=== PATIENT | male | born 1980 ===

== ENCOUNTER 2021-07-31 17:02 | Observation (INO) | payer SELFPAY ==
[2021-07-31] MEDS ORDERED: ACETAMINOPHEN 500 MG TAB PO STA (18:10)
[2021-07-31 18:29] LABS: Basophils % (Auto) 0.5 % (0.0-1.8); Eosinophils # (Auto) 0.9 K/mm3 (0.0-0.4); Eosinophils % (Auto) 13.8 % (0.0-4.3); Hematocrit 35.2 % (35.5-45.6); Hemoglobin 11.5 gm/dl (11.8-15.2); Lymphocytes # (Auto) 0.5 K/mm3 (1.2-5.4); Lymphocytes % (Auto) 7.2 % (13.4-35.0); Mean Corpuscular HGB Conc 33 % (32-34); Mean Corpuscular Volume 92 fl (84-94); Monocytes # (Auto) 0.5 K/mm3 (0.0-0.8); Monocytes % (Auto) 6.8 % (0.0-7.3); Platelet Count 138 K/mm3 (140-440); Red Blood Count 3.81 M/mm3 (3.65-5.03); Red Cell Distribution Width 13.3 % (13.2-15.2)
--- NOTE | 2021-07-31 18:39 | XRay Report ---
CHEST 2 VIEWS INDICATION / CLINICAL INFORMATION: fever. FINDINGS: SUPPORT DEVICES: None. HEART / MEDIASTINUM: Borderline enlarged LUNGS / PLEURA: No airspace pneumonia. Increased pulmonary venous prominence noted bilaterally Signer Name: Binu Ojeda MD Signed: 07/31/2021 6:35 PM Workstation Name: [id number]
[2021-07-31 18:53] LABS: Blood Urea Nitrogen 38 mg/dL (9-20); Calcium 8.2 mg/dL (8.4-10.2); Hemolysis Index 10
[2021-07-31 18:55] LABS: Alanine Aminotransferase < 5 units/L (7-56); BUN/Creatinine Ratio 4
[2021-07-31] MEDS ORDERED: cefTRIAXone/NS 2 GM/100 ML 2 GM/100 ML BAG IV ONE (19:04)
--- NOTE | 2021-07-31 19:04 | Emergency Department Report ---
ED General Adult HPI - General Chief complaint: Weakness Stated complaint: WEAKNESS/MALAISE PUI?: Yes Time Seen by Provider: 07/31/21 18:52 Source: patient, EMS ( EMS documentation not available at time of chart dictation ), RN notes reviewed Mode of arrival: Stretcher Limitations: Physical Limitation - History of Present Illness Initial comments: The patient was evaluated in the emergency department for symptoms described in the history of present illness. He/she was evaluated in the context of the global COVID-19 pandemic, which necessitated consideration that the patient might be at risk for infection with the virus that causes COVID-19. Institutional protocols and algorithms that pertain to the evaluation of patien ts at risk for COVID-19 are in a state of rapid change based on information released by regulatory bodies including the CDC and federal and state organizations. These policies and algorithms were followed during the patient's care in the emergency department. Please note that these policies, procedures and recommendations changed on a rapid basis. During the history and physical examination, I had on complete personal protective equipment. This is a 41-year-old gentleman. He is not known to myself previously. He has a history of end-stage renal disease on hemodialysis, with a right upper extremity fistula. He also reports a history of hypertension, and he is not vaccinated against COVID-19. The patient presents to the ER with a complaint of fever, body aches, chills, shortness of breath, malaise and fatigue, left-sided thorax pain, left-sided chest wall pain cough. Symptoms present for the past 24 to 48 hours. Mild headache. No neck pain. No anterior chest pain. No abdominal pain. No vomiting. He does not make urine. -: Gradual, days(s) Location: chest, back, left, right, upper extremity, lower extremity Severity scale (0 -10): 10 Quality: aching Consistency: constant Improves with: rest Worsens with: movement - Related Data Allergies Allergy/AdvReac Type Severity Reaction Status Date / Time No Known Allergies Allergy Unverified 07/31/21 17:08 ED Review of Systems ROS: Stated complaint: WEAKNESS/MALAISE Other details as noted in HPI Constitutional: fever, malaise, weakness ENT: congestion. denies: epistaxis Respiratory: cough, shortness of breath Cardiovascular: chest pain Gastrointestinal: denies: abdominal pain, vomiting Musculoskeletal: back pain, arthralgia, myalgia Neurological: headache, weakness ED Physical Exam - General Limitations: Physical Limitation General appearance: alert, anxious - Head Head exam: Present: atraumatic, normocephalic - Eye Eye exam: Present: normal appearance, EOMI. Absent: nystagmus - ENT ENT exam: Present: normal exam, normal orophraynx, mucous membranes moist, nor mal external ear exam - Neck Neck exam: Present: normal inspection, full ROM. Absent: tenderness, meningismus - Respiratory Respiratory exam: Present: chest wall tenderness, other (Pulmonary auscultation not performed secondary to lack of disposable stethoscope). Absent: stridor - Cardiovascular Cardiovascular Exam: Present: other (Cardiac auscultation not performed secondary to lack of disposable stethoscope) - GI/Abdominal GI/Abdominal exam: Present: soft. Absent: distended, tenderness, guarding, rebound, rigid, pulsatile mass - Rectal Rectal exam: Present: deferred - Extremities Exam Extremities exam: Present: normal inspection, full ROM, other (2+ pulses noted in the bilateral upper and lower extremities. There is no palpable cord. negative Homans sign. Muscular compartments are soft. The pelvis is stable.). Absent: calf tenderness - Back Exam Back exam: Present: normal inspection, paraspinal tenderness. Absent: tenderness, CVA tenderness (R), CVA tenderness (L), muscle spasm - Neurological Exam Neurological exam: Present: alert, abnormal gait (Patient walks with a broad- based gait. He requires assistance.), other (No facial droop. Tongue midline. Extraocular movements intact bilaterally. Facial sensation intact to light touch in V1, V2, V3 distribution bilaterally. 5 and a 5 strength in 4 extremities. Sensation intact to light touch in 4 extremities.). Absent: motor sensory deficit - Psychiatric Psychiatric exam: Present: anxious - Skin Skin exam: Present: warm, dry, intact, normal color. Absent: rash ED Course Vital Signs 07/31/21 07/31/21 07/31/21 17:06 20:57 20:59 Temperature 100.9 F H Pulse Rate 80 70 69 Respiratory 18 18 Rate Blood Pressure 167/108 Blood Pressure 201/112 [Right] O2 Sat by Pulse 100 100 Oximetry 07/31/21 07/31/21 21:01 21:15 Temperature Pulse Rate 72 70 Respiratory 17 19 Rate Blood Pressure 167/108 164/109 Blood Pressure [Right] O2 Sat by Pulse 100 100 Oximetry - Reevaluation(s) Reevaluation #1: 07/31/21 20:31 Differential diagnosis, including the not limited to: Bacteremia, viremia, pneumonia, COVID-19, end-stage renal disease on hemodialysis, hypertension Assessment and plan: 41-year-old gentleman, who is febrile, ill-appearing, cannot ambulate more than a few steps, who is not COVID-19 vaccinated, presenting with acute febrile illness. I am suspicious for COVID-19. He is not hypoxic at this time, but cannot ambulate. Laboratory studies reviewed and appreciated, elevated troponin is likely a type II troponin leak. Nephrology on board, please see my consultative note. Elevated blood pressure reviewed and appreciated, given febrile illness and concern for acute infectious pathology, reluctant to administer potent vasodilator such as hydralazine. We will start with Norvasc. We will load patient empirically with ceftriaxone. Have discussed recommenda tion for admission with the patient. He is agreeable to this plan of care. Medical decision makin-year-old gentleman with acute febrile illness, deconditioning and debility, not COVID-19 vaccinated, functionally immune compromised secondary to underlying end-stage renal disease on hemodialysis, requires admission to the medical service for supportive care, hemodialysis, and expedited inpatient work-up/evaluation 07/31/21 21:25 Dr Vera Regan, [facility] [employer] SERVICE INVESTIGATOR Krupa Pablo to admit to [facility] CT scan chest shows coronary artery calcifications, left-sided rib fractures. These correlate with the patient's pain and tenderness. No pneumonia is noted. Visualized abdominal organs unremarkable. - Consultations Consultation #1: 07/31/21 20:30 Discussed history, physical, laboratory studies and imaging studies plan of care and clinical impression with nephrology on-call, Dr. Mcdaniels. Nephrology will follow in consultation and arrange for dialysis in the morning. ED Medical Decision Making - Lab Data Result diagrams: 07/31/21 18:16 07/31/21 19:11 Vital Signs 07/31/21 17:06 Temperature 100.9 F H Pulse Rate 80 Respiratory 18 Rate Blood Pressure 201/112 [Right] O2 Sat by Pulse 100 Oximetry Lab Results 07/31/21 07/31/21 07/31/21 Range/Units 18:16 18:16 19:11 WBC 6.9 (4.5-11.0) K/mm3 RBC 3.81 (3.65-5.03) M/mm3 Hgb 11.5 L (11.8-15.2) gm/dl Hct 35.2 L (35.5-45.6) % MCV 92 (84-94) fl MCH 30 (28-32) pg MCHC 33 (32-34) % RDW 13.3 (13.2-15.2) % Plt Count 138 L (140-440) K/mm3 Lymph % (Auto) 7.2 L (13.4-35.0) % Yancey % (Auto) 6.8 (0.0-7.3) % Eos % (Auto) 13.8 H (0.0-4.3) % Baso % (Auto) 0.5 (0.0-1.8) % Lymph # (Auto) 0.5 L (1.2-5.4) K/mm3 Yancey # (Auto) 0.5 (0.0-0.8) K/mm3 Eos # (Auto) 0.9 H (0.0-0.4) K/mm3 Baso # (Auto) 0.0 (0.0-0.1) K/mm3 Seg Neutrophils % 71.7 H (40.0-70.0) % Seg Neutrophils # 4.9 (1.8-7.7) K/mm3 D-Dimer 837.95 H (0-234) ng/mlDDU Sodium 134 L (137-145) mmol/L Potassium 5.4 H (3.6-5.0) mmol/L Chloride 97.5 L (98-107) mmol/L Carbon Dioxide 19 L (22-30) mmol/L Anion Gap 23 mmol/L BUN 38 H (9-20) mg/dL Creatinine 8.5 H (0.8-1.3) mg/dL Estimated GFR 7 ml/min BUN/Creatinine Ratio 4 % Glucose 101 H (75-100) mg/dL Lactic Acid (0.7-2.0) mmol/L Calcium 8.2 L (8.4-10.2) mg/dL Magnesium (1.7-2.3) mg/dL Total Bilirubin 0.30 (0.1-1.2) mg/dL AST 8 (5-40) units/L ALT < 5 L (7-56) units/L Alkaline Phosphatase 243 H (35-129) units/L Lactate Dehydrogenase (91-180) units/L Total Creatine Kinase (55-170) units/L Troponin T (0.00-0.029) ng/mL C-Reactive Protein (0.00-1.30) mg/dL Total Protein 7.3 (6.3-8.2) g/dL Albumin 4.0 (3.9-5) g/dL Albumin/Globulin Ratio 1.2 % 07/31/21 07/31/21 07/31/21 Range/Units 19:11 19:11 19:11 WBC (4.5-11.0) K/mm3 RBC (3.65-5.03) M/mm3 Hgb (11.8-15.2) gm/dl Hct (35.5-45.6) % MCV (84-94) fl MCH (28-32) pg MCHC (32-34) % RDW (13.2-15.2) % Plt Count (140-440) K/mm3 Lymph % (Auto) (13.4-35.0) % Yancey % (Auto) (0.0-7.3) % Eos % (Auto) (0.0-4.3) % Baso % (Auto) (0.0-1.8) % Lymph # (Auto) (1.2-5.4) K/mm3 Yancey # (Auto) (0.0-0.8) K/mm3 Eos # (Auto) (0.0-0.4) K/mm3 Baso # (Auto) (0.0-0.1) K/mm3 Seg Neutrophils % (40.0-70.0) % Seg Neutrophils # (1.8-7.7) K/mm3 D-Dimer (0-234) ng/mlDDU Sodium (137-145) mmol/L Potassium (3.6-5.0) mmol/L Chloride (98-107) mmol/L Carbon Dioxide (22-30) mmol/L Anion Gap mmol/L BUN (9-20) mg/dL Creatinine (0.8-1.3) mg/dL Estimated GFR ml/min BUN/Creatinine Ratio % Glucose 101 H (75-100) mg/dL Lactic Acid 0.90 (0.7-2.0) mmol/L Calcium (8.4-10.2) mg/dL Magnesium 2.30 (1.7-2.3) mg/dL Total Bilirubin (0.1-1.2) mg/dL AST (5-40) units/L ALT (7-56) units/L Alkaline Phosphatase (35-129) units/L Lactate Dehydrogenase 198 H (91-180) units/L Total Creatine Kinase 111 (55-170) units/L Troponin T 0.078 H (0.00-0.029) ng/mL C-Reactive Protein 5.90 H (0.00-1.30) mg/dL Total Protein (6.3-8.2) g/dL Albumin (3.9-5) g/dL Albumin/Globulin Ratio % - EKG Data -: EKG Interpreted by Mt EKG shows normal: sinus rhythm Rate: normal - EKG Data 07/31/21 20:29 The EKG is interpreted at 19: 51 Sinus rhythm, 77 bpm. Normal axis, QTC 490 ms. High left ventricular voltage, symmetric peak T waves. Abnormal EKG, not a STEMI, the patient denies chest pain. ST morphology abnormalities likely secondary to underlying left ventricular hypertrophy, high left ventricular voltage. - Radiology Data Radiology results: pending, report reviewed, image reviewed CHEST 2 VIEWS INDICATION / CLINICAL INFORMATION: fever. FINDINGS: SUPPORT DEVICES: None. HEART / MEDIASTINUM: Borderline enlarged LUNGS / PLEURA: No airspace pneumonia. Increased pulmonary venous prominence noted bilaterally Signer Name: Binu Ojeda MD Signed: 07/31/2021 5:35 PM Workstation Name: [id number] CT CHEST WITHOUT CONTRAST INDICATION / CLINICAL INFORMATION: left sided thorax pain cough fever. TECHNIQUE: Axial CT images were obtained through the chest without contrast. All CT scans at this location are performed using CT dose reduction for ALARA by means of automated exposure control. COMPARISON: Chest radiograph same day FINDINGS: HEART: Mild enlarged CORONARY ARTERY CALCIF ICATION: Severe multivessel THORACIC AORTA: Mild atherosclerotic calcification without acute abnormality. MEDIASTINUM / ELLIOTT: No significant abnormality. PLEURA: No pleural effusion. No pneumothorax. LUNGS: No acute air space or interstitial disease. ADDITIONAL FINDINGS: None. UPPER ABDOMEN: Severe renal atrophy and cystic change SKELETAL SYSTEM: Nondisplaced fractures of the lateral left eighth and 10th ribs. IMPRESSION: 1. Nondisplaced fractures of the lateral left eighth and 10th ribs. 2. No other acute intrathoracic abnormality is identified. 3. Severe multivessel CAD. Signer Name: Miguel Giraldo MD Signed: 07/31/2021 7:36 PM Workstation Name: [id number] Critical care attestation.: If time is entered above; I have spent that time in minutes in the direct care of this critically ill patient, excluding procedure time. ED Disposition Clinical Impression: Acute febrile illness, Left-sided chest pain, End-stage renal disease on hemodialysis, Suspected COVID-19 virus infection, COVID-19 vaccination not done, Hypertension, Debility, CAD (coronary artery disease), Left rib fracture Disposition: 09 ADMITTED INPATIENT Is pt being admited?: Yes Does the pt Need Aspirin: Yes Condition: Good Instructions: Nonspecific Chest Pain, Adult, Hypertension (ED) Heart Score - HEART Score History: Slightly suspicious EKG: Non-specific Age: < 45 Risk factors: > 3 risk factors or hx of atherosclerotic disease Troponin: 1-3x normal limit HEART Score: 4 - EKG Read Time Time EKG Completed: 19:51 EKG Read Time: 19:51 - Critical Actions Critical Actions: 4-6 pts:12-16.6% risk of adverse cardiac event. Should be admitted
[2021-07-31 19:55] LABS: C-Reactive Protein 5.9 mg/dL (0.00-1.30)
[2021-07-31 20:23] LABS: Chol/HDL Ratio 2.82 %
[2021-07-31] MEDS ORDERED: amLODIPine 5 MG TAB PO ONE (20:34)
[2021-07-31] MEDS ORDERED: ASPIRIN 81 MG TAB CHEW PO ONE (20:35)
--- NOTE | 2021-07-31 20:41 | Cat Scan Report ---
CT CHEST WITHOUT CONTRAST INDICATION / CLINICAL INFORMATION: left sided thorax pain cough fever. TECHNIQUE: Axial CT images were obtained through the chest without contrast. [facility] CT [facility] are performed using CT dose reduction for ALARA by means of automated exposure control. COMPARISON: Chest radiograph same day FINDINGS: HEART: Mild enlarged CORONARY ARTERY CALCIFICATION: Severe multivessel THORACIC AORTA: Mild atherosclerotic calcification without acute abnormality. MEDIASTINUM / ELLIOTT: No significant abnormality. PLEURA: No pleural effusion. No pneumothorax. LUNGS: No acute air space or interstitial disease. ADDITIONAL FINDINGS: None. UPPER ABDOMEN: Severe renal atrophy and cystic change SKELETAL SYSTEM: Nondisplaced fractures of the lateral left eighth and 10th ribs. IMPRESSION: 1. Nondisplaced fractures of the lateral left eighth and 10th ribs. 2. No other acute intrathoracic abnormality is identified. 3. Severe multivessel CAD. Signer Name: Miguel Giraldo MD Signed: 07/31/2021 8:36 PM Workstation Name: [id number]
--- NOTE | 2021-07-31 21:51 | History and Physical Report ---
History of Present Illness Date of examination: 07/31/21 Date of admission: 07/31/21 Chief complaint: acute chest pain Fever History of present illness: This is a 41 year old male patient seen in ED at bedside. He has a history of hypertension and end-stage renal disease on hemodialysis, with a right upper extremity fistula. He said he is not vaccinated against COVID-19 and said he does not believe in covid vaccine. He presents to the ER with a complaint of fe margarita, body aches, chills, shortness of breath, malaise and fatigue, left-sided thorax pain, left-sided chest wall pain cough. I reviewed his lab value-all inflammatory makers elevated. ID consulted. Past History Past Medical History: ESRD, hypertension Past Surgical History: No surgical history Social history: lives with family, smoking, full code. denies: alcohol abuse, prescription drug abuse, IV drug use Family history: no significant family history Medications and Allergies Allergies Allergy/AdvReac Type Severity Reaction Status Date / Time No Known Allergies Allergy Unverified 07/31/21 17:08 Review of Systems Constitutional: fatigue, weakness, malaise, other (fever) Ears, nose, mouth and throat: no epistaxis, no bleeding gums Cardiovascular: chest pain, high blood pressure Respiratory: no wheezing Gastrointestinal: no melena Rectal: no hemorrhoids Integumentary: no rash, no pruritis, no redness Psychiatric: anxiety Hematologic/Lymphatic: no easy bruising, no easy bleeding, no lymphadenopathy, no lymphedema Allergic/Immunologic: no urticaria, no allergic rhinitis Exam - Constitutional Vitals: Temp Pulse Resp BP Pulse Ox 100.9 F H 70 19 164/109 100 07/31/21 17:06 07/31/21 21:15 07/31/21 21:15 07/31/21 21:15 07/31/21 21:15 General appearance: Present: mild distress, well-nourished - EENT Eyes: Present: PERRL ENT: hearing intact, clear oral mucosa - Neck Neck: Present: supple, normal ROM - Respiratory Respiratory effort: normal Respiratory: bilateral: CTA - Cardiovascular Heart Sounds: Present: S1 & S2. Absent: rub, click - Extremities Extremities: pulses symmetrical, No edema Peripheral Pulses: within normal limits - Abdominal General gastrointestinal: Present: soft, non-tender, non-distended, normal bowel sounds Male genitourinary: Present: normal - Integumentary Integumentary: Present: clear, warm, dry - Musculoskeletal Musculoskeletal: strength equal bilaterally, generalized weakness - Psychiatric Psychiatric: appropriate mood/affect, intact judgment & insight, cooperative - Neurologic Neurologic: CNII-XII intact, moves all extremities - Allied Health Allied health notes reviewed: nursing HEART Score - HEART Score EKG: Non-specific Age: < 45 Risk factors: > 3 risk factors or hx of atherosclerotic disease Troponin: Troponin T 0.078 ng/mL (0.00-0.029) H 07/31/21 19:11 Troponin: 1-3x normal limit - Critical Actions Critical Actions: 4-6 pts:12-16.6% risk of adverse cardiac event. Should be admitted Results - Labs CBC & Chem 7: 08/01/21 03:44 07/31/21 19:11 Labs: Abnormal lab results 07/31/21 07/31/21 07/31/21 Range/Units 18:16 18:16 19:11 Hgb 11.5 L (11.8-15.2) gm/dl Hct 35.2 L (35.5-45.6) % Plt Count 138 L (140-440) K/mm3 Lymph % (Auto) 7.2 L (13.4-35.0) % Eos % (Auto) 13.8 H (0.0-4.3) % Lymph # (Auto) 0.5 L (1.2-5.4) K/mm3 Eos # (Auto) 0.9 H (0.0-0.4) K/mm3 Seg Neutrophils % 71.7 H (40.0-70.0) % D-Dimer 837.95 H (0-234) ng/mlDDU Sodium 134 L (137-145) mmol/L Potassium 5.4 H (3.6-5.0) mmol/L Chloride 97.5 L (98-107) mmol/L Carbon Dioxide 19 L (22-30) mmol/L BUN 38 H (9-20) mg/dL Creatinine 8.5 H (0.8-1.3) mg/dL Glucose 101 H (75-100) mg/dL Calcium 8.2 L (8.4-10.2) mg/dL Ferritin (30.0-300.0) ng/mL ALT < 5 L (7-56) units/L Alkaline Phosphatase 243 H (35-129) units/L Lactate Dehydrogenase (91-180) units/L Troponin T (0.00-0.029) ng/mL C-Reactive Protein (0.00-1.30) mg/dL 07/31/21 07/31/21 07/31/21 Range/Units 19:11 19:11 19:11 Hgb (11.8-15.2) gm/dl Hct (35.5-45.6) % Plt Count (140-440) K/mm3 Lymph % (Auto) (13.4-35.0) % Eos % (Auto) (0.0-4.3) % Lymph # (Auto) (1.2-5.4) K/mm3 Eos # (Auto) (0.0-0.4) K/mm3 Seg Neutrophils % (40.0-70.0) % D-Dimer (0-234) ng/mlDDU Sodium (137-145) mmol/L Potassium (3.6-5.0) mmol/L Chloride (98-107) mmol/L Carbon Dioxide (22-30) mmol/L BUN (9-20) mg/dL Creatinine (0.8-1.3) mg/dL Glucose 101 H (75-100) mg/dL Calcium (8.4-10.2) mg/dL Ferritin 2634.0 H (30.0-300.0) ng/mL ALT (7-56) units/L Alkaline Phosphatase (35-129) units/L Lactate Dehydrogenase 198 H (91-180) units/L Troponin T 0.078 H (0.00-0.029) ng/mL C-Reactive Protein 5.90 H (0.00-1.30) mg/dL Assessment and Plan - Patient Problems (1) Left-sided chest pain Current Visit: No Status: Inactive Plan to address problem: ? cause PRN pain medicine/sublingual nitro CT of the chest -showed nondisplaced fracture left lateral 8 and 10th ribs General surgeon consult (2) Suspected COVID-19 virus infection Current Visit: No Status: Inactive Plan to address problem: Airborne and Isolation precaution Bronchodilator and oxygen supplement if needed Ascorbic acid, zinc sulphate, and vitamin D supplement ID consult Elevated inflammatory makers-check q 48hrs (3) CAD (coronary artery disease) Current Visit: Yes Status: Acute Plan to address problem: ASA and statin CT showed severe multi-level CAD (4) ESRD (end stage renal disease) on dialysis Current Visit: Yes Status: Acute Plan to address problem: [place] consulted-f/u with recommendation-HD (5) Hyperkalemia Current Visit: Yes Status: Acute Plan to address problem: Likely 2/2 to kidney failure Kayexalate Minutor kidney function and electrolytes (6) Elevated d-dimer Current Visit: Yes Status: Acute Plan to address problem: VQ scan ordered-f/u with result (7) DVT prophylaxis Current Visit: Yes Status: Acute Plan to address problem: heparin
[2021-07-31] MEDS ORDERED: ALUM-MAG HYDROXIDE-SIMETHICONE 200-200-20MG/5ML ORAL LIQD 30 ML PO PRN (21:53)
[2021-07-31] MEDS ORDERED: SENNOSIDES 8.6 MG TAB PO PRN (21:53)
[2021-07-31] MEDS ORDERED: MORPHINE 4 MG/1 ML INJ IV PRN (21:53)
[2021-07-31] MEDS ORDERED: oxyCODONE /ACETAMINOPHEN 5-325MG TAB PO PRN (21:53)
[2021-07-31] MEDS ORDERED: NALOXONE 0.4 MG/1 ML INJ IV PRN (21:53)
[2021-07-31] MEDS ORDERED: ONDANSETRON 4 MG/2 ML INJ IV PRN (21:53)
[2021-07-31] MEDS ORDERED: MAGNESIUM HYDROXIDE (MOM) ORAL LIQD UDC PO PRN (21:53)
[2021-07-31] MEDS ORDERED: METOCLOPRAMIDE 10 MG/2 ML INJ IV PRN (21:53)
[2021-07-31] MEDS ORDERED: MORPHINE 2 MG/1 ML INJ IV PRN (21:53)
[2021-07-31] MEDS: HEPARIN 5,000 UNIT/1 ML VIAL SUB-Q SCH (22:07)
[2021-08-01 05:41] LABS: Hematocrit 32.7 % (35.5-45.6); Hemoglobin 10.5 gm/dl (11.8-15.2); Mean Corpuscular HGB Conc 32 % (32-34); Mean Corpuscular Volume 93 fl (84-94); Platelet Count 125 K/mm3 (140-440); Red Blood Count 3.52 M/mm3 (3.65-5.03)
[2021-08-01] MEDS ORDERED: SODIUM POLYSTYRENE 15 GM/60 ML ORAL LIQD PO ONE (05:45)
[2021-08-01 05:51] LABS: Albumin 3.6 g/dL (3.9-5); Blood Urea Nitrogen 42 mg/dL (9-20); Calcium 8.5 mg/dL (8.4-10.2); Hemolysis Index 3
[2021-08-01 05:52] LABS: Alanine Aminotransferase < 5 units/L (7-56); BUN/Creatinine Ratio 4
--- NOTE | 2021-08-01 07:25 | Nuclear Medicine Report ---
NUCLEAR MEDICINE PERFUSION LUNG SCAN INDICATION / CLINICAL INFORMATION: Shortness of breath and elevated d-dimer. TECHNIQUE: 5.1 mCi of Tc-99m MAA were given by IV. COMPARISON: Chest radiograph dated yesterday. FINDINGS: PERFUSION: No significant perfusion defects. ADDITIONAL FINDINGS: None. IMPRESSION: Very low probability for pulmonary embolism. Signer Name: Daniel Cain MD Signed: 08/01/2021 7:21 AM Workstation Name: [id number]
--- NOTE | 2021-08-01 09:27 | Consultation ---
History of Present Illness - Reason for Consult Consult date: 08/01/21 end stage renal disease Requesting physician: GUNNER SANTILLAN - History of Present Illness This is a 41 year old male patient seen in ED at bedside. He has a history of hypertension and end-stage renal disease on hemodialysis, with a right upper extremity fistula. He said he is not vaccinated against COVID-19 and said he does not believe in covid vaccine. He presents to the ER with a complaint of fever, body aches, chills, shortness of breath, malaise and fatigue, left-sided thorax pain, left-sided chest wall pain cough. I reviewed his lab value-all inflammatory makers elevated. ID consulted. [place] [facility] [place] that he did have his dialysis treatment on Sunday Past History Past Medical History: ESRD, hypertension Past Surgical History: No surgical history Social history: lives with family, smoking, full code. denies: alcohol abuse, prescription drug abuse, IV drug use Family history: no significant family history Medications and Allergies Allergies Allergy/AdvReac Type Severity Reaction Status Date / Time No Known Allergies Allergy Unverified 07/31/21 17:08 Active Meds: Active Medications Acetaminophen (Acetaminophen 325 Mg Tab) 650 mg PO Q4H PRN PRN Reason: Pain MILD(1-3)/Fever >100.5/CASTRO Al Hydrox/Mg Hydrox/Simethicone (Alum-Mag Hydroxide-Simethicone [id number]/5ml Oral Liqd 30 Ml) 30 ml PO Q4H PRN PRN Reason: Indigestion Amlodipine Besylate (Amlodipine 10 Mg Tab) 10 mg PO QDAY [facility] Ascorbic Acid (Ascorbic Acid 500 Mg Tab) 500 mg PO QDAY [facility] Aspirin (Aspirin Ec 81 Mg Tab) 81 mg PO QDAY [facility] Atorvastatin Calcium (Atorvastatin 20 Mg Tab) 20 mg PO QHS [facility] Cholecalciferol (Cholecalciferol (Vit D3) 1000 Unit (25 Mcg) Tab) 1,000 unit PO QDAY [facility] Heparin Sodium (Porcine) (Heparin 5,000 Unit/1 Ml Vial) 5,000 unit SUB-Q Q12HR [facility] Last Admin: 07/31/21 22:07 Dose: 5,000 unit Documented by: Hydralazine HCl (Hydralazine 20 Mg/1 Ml Inj) 5 mg IV Q4H PRN PRN Reason: Hypertension Magnesium Hydroxide (Magnesium Hydroxide (Mom) Oral Liqd Udc) 30 ml PO Q4H PRN PRN Reason: Constipation Metoclopramide HCl (Metoclopramide 10 Mg/2 Ml Inj) 5 mg IV Q6H PRN PRN Reason: Nausea And Vomiting Morphine Sulfate (Morphine 2 Mg/1 Ml Inj) 2 mg IV Q4H PRN PRN Reason: Pain, Moderate (4-6) Morphine Sulfate (Morphine 4 Mg/1 Ml Inj) 4 mg IV Q4H PRN PRN Reason: Pain , Severe (7-10) Naloxone HCl (Naloxone 0.4 Mg/1 Ml Inj) 0.1 mg IV Q2MIN PRN PRN Reason: Res Rate </= 8 or 02 SAT < 92% Ondansetron HCl (Ondansetron 4 Mg/2 Ml Inj) 4 mg IV Q8H PRN PRN Reason: Nausea And Vomiting Oxycodone/Acetaminophen (Oxycodone /Acetaminophen 5-325mg Tab) 1 tab PO Q6H PRN PRN Reason: Pain, Moderate (4-6) Senna (Sennosides 8.6 Mg Tab) 8.6 mg PO Q12HR PRN PRN Reason: Constipation Sodium Chloride (Sodium Chloride 0.9% 10 Ml Flush Syringe) 10 ml IV BID [facility] Last Admin: 07/31/21 22:10 Dose: 10 ml Documented by: Zinc Sulfate (Zinc Sulfate 220 Mg Cap) 220 mg PO QDAY [facility] Review of Systems All systems: negative (Negative except as noted above) Exam - Vital Signs Vital signs: Vital Signs Temp Pulse Resp BP Pulse Ox 100.9 F H 80 18 201/112 100 07/31/21 17:06 07/31/21 17:06 07/31/21 17:06 07/31/21 17:06 07/31/21 17:06 - General Appearance General appearance: well-developed, well-nourished, appears stated age EENT: PERRL, mucous membranes moist Neck: Present: neck supple, trachea midline. Absent: JVD/HJR, Masses Respiratory: Clear to Ascultation Heart: regular, normal heart rate Gastrointestinal: Present: normal, normoactive bowel sounds Integumentary: no rash, other (AV fistula right forearm. Good bruit and thrill.) Results - Lab Results 08/01/21 03:44 08/01/21 03:44 Most recent lab results Calcium 8.5 mg/dL (8.4-10.2) 08/01/21 03:44 Magnesium 2.30 mg/dL (1.7-2.3) 07/31/21 19:11 Assessment and Plan Impression * End-stage renal disease on maintenance hemodialysis * Fever * Viral syndrome * Hypertension * Anemia secondary to ESRD * Mild hyperkalemia * History of hypertension Recommendations * No urgent indication for dialysis today. Patient is clinically not volume overloaded * Shall schedule patient for hemodialysis for tomorrow and keep him on TTS schedule as outpatient * Management of his febrile illness as per primary team * Binders with meals * Epogen with dialysis * No IV, BP or venipuncture in his access arm * Adjust diet and meds for ESRD state * Thank you very much for the consultation. Shall follow along with you
[2021-08-01] MEDS ORDERED: EPOETIN ALFA-EPBX 10,000 UNIT/1 ML VIAL IV PRN (10:00)
[2021-08-01] MEDS ORDERED: amLODIPine 10 MG TAB PO SCH (10:00)
[2021-08-01] MEDS ORDERED: SODIUM CHLORIDE 0.9% 100 ML IV PRN (10:00)
--- NOTE | 2021-08-01 10:32 | Progress Note ---
Assessment and Plan Assessment and plan: Left lateral 8, 9, 10 rib fractures Suspected COVID-19 infection CAD. ESRD on hemodialysis Hyperkalemia Elevated D-dimer. 08/01/2021. Follow-up blood cultures and Covid PCR for fever. Continue empiric antibiotics. CT shows severe multilevel CAD. Patient was started on aspirin and statin. Chest pain is likely related to rib fractures. However, given the CT scan, we will consult cardiology for further evaluation. Continue hemodialysis per nephrology. Elevated D-dimer but VQ scan shows low probability for PE History Interval history: No new issues overnight. Hospitalist Physical - Constitutional Vitals: Temp Pulse Resp BP Pulse Ox 100.9 F H 74 15 199/124 98 07/31/21 17:06 08/01/21 07:45 08/01/21 07:45 08/01/21 07:45 08/01/21 07:45 General appearance: Present: no acute distress, well-nourished - EENT Eyes: Present: PERRL, EOM intact ENT: hearing intact, clear oral mucosa, dentition normal - Neck Neck: Present: supple, normal ROM - Respiratory Respiratory effort: normal Respiratory: bilateral: CTA - Cardiovascular Rhythm: regular Heart Sounds: Present: S1 & S2. Absent: gallop, rub - Extremities Extremities: no ischemia, No edema, Full ROM - Abdominal General gastrointestinal: soft, non-tender, non-distended, normal bowel sounds - Integumentary Integumentary: Present: clear, warm, dry - Neurologic Neurologic: CNII-XII intact, moves all extremities HEART Score - HEART Score EKG: Non-specific Age: < 45 Risk factors: > 3 risk factors or hx of atherosclerotic disease Troponin: Troponin T 0.078 ng/mL (0.00-0.029) H 07/31/21 19:11 Troponin: 1-3x normal limit - Critical Actions Critical Actions: 4-6 pts:12-16.6% risk of adverse cardiac event. Should be admitted Results - Labs CBC & Chem 7: 08/01/21 03:44 08/01/21 03:44 Labs: Laboratory Last Values WBC 4.4 K/mm3 (4.5-11.0) L 08/01/21 03:44 RBC 3.52 M/mm3 (3.65-5.03) L 08/01/21 03:44 Hgb 10.5 gm/dl (11.8-15.2) L 08/01/21 03:44 Hct 32.7 % (35.5-45.6) L 08/01/21 03:44 MCV 93 fl (84-94) 08/01/21 03:44 MCH 30 pg (28-32) 08/01/21 03:44 MCHC 32 % (32-34) 08/01/21 03:44 RDW 13.0 % (13.2-15.2) L 08/01/21 03:44 Plt Count 125 K/mm3 (140-440) L 08/01/21 03:44 Lymph % (Auto) 7.2 % (13.4-35.0) L 07/31/21 18:16 [place] % (Auto) 6.8 % (0.0-7.3) 07/31/21 18:16 Eos % (Auto) Rand Tacker 08/01/21 03:44 Baso % (Auto) 0.5 % (0.0-1.8) 07/31/21 18:16 Lymph # (Auto) 0.5 K/mm3 (1.2-5.4) L 07/31/21 18:16 [place] # (Auto) 0.5 K/mm3 (0.0-0.8) 07/31/21 18:16 Eos # (Auto) 0.9 K/mm3 (0.0-0.4) H 07/31/21 18:16 Baso # (Auto) 0.0 K/mm3 (0.0-0.1) 07/31/21 18:16 Seg Neutrophils % 71.7 % (40.0-70.0) H 07/31/21 18:16 Seg Neutrophils # 4.9 K/mm3 (1.8-7.7) 07/31/21 18:16 D-Dimer 837.95 ng/mlDDU (0-234) H 07/31/21 19:11 Sodium 136 mmol/L (137-145) L 08/01/21 03:44 Potassium 5.3 mmol/L (3.6-5.0) H 08/01/21 03:44 Chloride 98.7 mmol/L (98-107) 08/01/21 03:44 Carbon Dioxide 21 mmol/L (22-30) L 08/01/21 03:44 Anion Gap 22 mmol/L 08/01/21 03:44 BUN 42 mg/dL (9-20) H 08/01/21 03:44 Creatinine 9.4 mg/dL (0.8-1.3) H 08/01/21 03:44 Estimated GFR 6 ml/min 08/01/21 03:44 BUN/Creatinine Ratio 4 % 08/01/21 03:44 Glucose 83 mg/dL (75-100) 08/01/21 03:44 Lactic Acid 0.90 mmol/L (0.7-2.0) 07/31/21 19:11 Calcium 8.5 mg/dL (8.4-10.2) 08/01/21 03:44 Magnesium 2.30 mg/dL (1.7-2.3) 07/31/21 19:11 Ferritin 2634.0 ng/mL (30.0-300.0) H 07/31/21 19:11 Total Bilirubin 0.20 mg/dL (0.1-1.2) 08/01/21 03:44 AST 6 units/L (5-40) 08/01/21 03:44 ALT < 5 units/L (7-56) L 08/01/21 03:44 Alkaline Phosphatase 211 units/L (35-129) H 08/01/21 03:44 Lactate Dehydrogenase 141 units/L (91-180) 07/31/21 23:25 Total Creatine Kinase 111 units/L (55-170) 07/31/21 19:11 Troponin T 0.078 ng/mL (0.00-0.029) H 07/31/21 19:11 C-Reactive Protein 5.90 mg/dL (0.00-1.30) H 07/31/21 19:11 Total Protein 6.6 g/dL (6.3-8.2) 08/01/21 03:44 Albumin 3.6 g/dL (3.9-5) L 08/01/21 03:44 Albumin/Globulin Ratio 1.2 % 08/01/21 03:44 Triglycerides 121 mg/dL (2-149) 07/31/21 19:11 Cholesterol 158 mg/dL (50-199) 07/31/21 19:11 LDL Cholesterol Direct 79 mg/dL (50-130) 07/31/21 19:11 HDL Cholesterol 56 mg/dL (40-59) 07/31/21 19:11 Cholesterol/HDL Ratio 2.82 % 07/31/21 19:11 Microbiology: Microbiology 07/31/21 19:11 Peripheral/Venous Blood Culture - Preliminary Culture in Progress 07/31/21 19:17 Peripheral/Venous Blood Culture - Preliminary Culture in Progress Active Medications - Current Medications Current Medications: Generic Name Dose Route Start Last Admin Trade Name Freq PRN Reason Stop Dose Admin Acetaminophen 650 mg 07/31/21 21:53 Acetaminophen 325 Mg Tab PO Q4H PRN Pain MILD(1-3)/Fever >100.5/CASTRO Al Hydrox/Mg Hydrox/Simethicone 30 ml 07/31/21 21:53 Alum-Mag Hydroxide-Simethicone [id number]/5ml Oral Liqd 30 Ml PO Q4H PRN Indigestion Amlodipine Besylate 10 mg 08/01/21 10:00 Amlodipine 10 Mg Tab PO QDAY [facility] Ascorbic Acid 500 mg 08/01/21 10:00 Ascorbic Acid 500 Mg Tab PO QDAY [facility] Aspirin 81 mg 08/01/21 10:00 Aspirin Ec 81 Mg Tab PO QDAY [facility] Atorvastatin Calcium 20 mg 08/01/21 22:00 Atorvastatin 20 Mg Tab PO QHS [facility] Cholecalciferol 1,000 unit 08/01/21 10:00 Cholecalciferol (Vit D3) 1000 Unit (25 Mcg) Tab PO QDAY [facility] Heparin Sodium (Porcine) 5,000 unit 07/31/21 22:00 07/31/21 22:07 Heparin 5,000 Unit/1 Ml Vial SUB-Q 5,000 unit Q12HR [facility] Administration Hydralazine HCl 5 mg 07/31/21 21:57 Hydralazine 20 Mg/1 Ml Inj IV Q4H PRN Hypertension Sodium Chloride 100 mls @ 999 mls/hr 08/01/21 10:00 Nacl 0.9% IV [place] PRN Hypotension Magnesium Hydroxide 30 ml 07/31/21 21:53 Magnesium Hydroxide (Mom) Oral Liqd Udc PO Q4H PRN Constipation Metoclopramide HCl 5 mg 07/31/21 21:53 Metoclopramide 10 Mg/2 Ml Inj IV Q6H PRN Nausea And Vomiting Morphine Sulfate 2 mg 07/31/21 21:53 Morphine 2 Mg/1 Ml Inj IV Q4H PRN Pain, Moderate (4-6) Morphine Sulfate 4 mg 07/31/21 21:53 Morphine 4 Mg/1 Ml Inj IV Q4H PRN Pain , Severe (7-10) Naloxone HCl 0.1 mg 07/31/21 21:53 Naloxone 0.4 Mg/1 Ml Inj IV Q2MIN PRN Res Rate </= 8 or 02 SAT < 92% Ondansetron HCl 4 mg 07/31/21 21:53 Ondansetron 4 Mg/2 Ml Inj IV Q8H PRN Nausea And Vomiting Oxycodone/Acetaminophen 1 tab 07/31/21 21:53 Oxycodone /Acetaminophen 5-325mg Tab PO Q6H PRN Pain, Moderate (4-6) Senna 8.6 mg 07/31/21 21:53 Sennosides 8.6 Mg Tab PO Q12HR PRN Constipation Sodium Chloride 10 ml 07/31/21 22:00 07/31/21 22:10 Sodium Chloride 0.9% 10 Ml Flush Syringe IV 10 ml BID [facility] Administration Zinc Sulfate 220 mg 08/01/21 10:00 Zinc Sulfate 220 Mg Cap PO QDAY [facility]
[2021-08-01] MEDS: HEPARIN 5,000 UNIT/1 ML VIAL SUB-Q SCH ×2 (10:45→21:38)
[2021-08-01] MEDS: ASPIRIN EC 81 MG TAB PO SCH (10:45)
[2021-08-01] MEDS: ZINC SULFATE 220 MG CAP PO SCH (10:47)
[2021-08-01] MEDS: CHOLECALCIFEROL (VIT D3) 1000 UNIT (25 mcg) TAB PO SCH (10:47)
[2021-08-01] MEDS: ASCORBIC ACID 500 MG TAB PO SCH (10:47)
[2021-08-01 11:33] LABS: Total Cells Counted 100
[2021-08-01 11:34] LABS: Platelet Estimate Consistent w Auto; RBC Morphology Normal
[2021-08-01] MEDS: hydrALAZINE 20 MG/1 ML INJ IV PRN ×2 (12:23→19:02)
--- NOTE | 2021-08-01 15:18 | Consultation ---
History of Present Illness Consult date: 08/01/21 Chief complaint: Chest pain - History of present illness History of present illness: 41-year-old male who presents to the emergency room with left-sided chest pain. The patient states that the pain is sharp and a 5 out of 10 in severity. It is localized over the rib cage on the lateral aspect and back. He states it started over 1 week ago when he was coughing. He states that he was lifting something heavy and turned and had severe coughing at the same time. He felt a crack on his left rib cage and started experiencing the pain at that time. No alleviating or exacerbating factors. He has never had pain like this in the past. No fevers or chills. Denies shortness of breath. Work-up in the emergency room included CT of the chest which revealed nondisplaced rib fractures of the left lateral eighth and 10th rib. Surgery is consulted for evaluation. Past History Past Medical History: ESRD, hypertension Past Surgical History: No surgical history Social history: lives with family, smoking, full code. denies: alcohol abuse, prescription drug abuse, IV drug use Family history: no significant family history Medications and Allergies Allergies Allergy/AdvReac Type Severity Reaction Status Date / Time No Known Allergies Allergy Verified 08/01/21 12:08 Home Medications Medication Instructions Recorded Confirmed Last Taken Type Cinacalcet HCl [Sensipar] 90 mg PO QHS 08/01/21 08/01/21 Unknown History Ferric Citrate (Nf) [Auryxia] 630 mg PO TIDAC 08/01/21 08/01/21 Unknown History Hydralazine HCl 50 mg PO BID 08/01/21 08/01/21 Unknown History NIFEdipine XL [Procardia Xl] 60 mg PO Q12HR 08/01/21 08/01/21 Unknown History Vit B Comp C/Folic Acid/Vit D3 1 tab PO QDAY 08/01/21 08/01/21 Unknown History [Dialyvite 800 Plus D Wafer] cloNIDine HCL [Clonidine HCl] 0.3 mg PO BID 08/01/21 08/01/21 Unknown History Active Meds: Active Medications Acetaminophen (Acetaminophen 325 Mg Tab) 650 mg PO Q4H PRN PRN Reason: Pain MILD(1-3)/Fever >100.5/CASTRO Al Hydrox/Mg Hydrox/Simethicone (Alum-Mag Hydroxide-Simethicone [phone]/5ml Oral Liqd 30 Ml) 30 ml PO Q4H PRN PRN Reason: Indigestion Amlodipine Besylate (Amlodipine 10 Mg Tab) 10 mg PO QDAY [facility] Last Admin: 08/01/21 10:45 Dose: 10 mg Documented by: Ascorbic Acid (Ascorbic Acid 500 Mg Tab) 500 mg PO QDAY [facility] Last Admin: 08/01/21 10:47 Dose: 500 mg Documented by: Aspirin (Aspirin Ec 81 Mg Tab) 81 mg PO QDAY [facility] Last Admin: 08/01/21 10:45 Dose: 81 mg Documented by: Atorvastatin Calcium (Atorvastatin 20 Mg Tab) 20 mg PO QHS [facility] Cholecalciferol (Cholecalciferol (Vit D3) 1000 Unit (25 Mcg) Tab) 1,000 unit PO QDAY [facility] Last Admin: 08/01/21 10:47 Dose: 1,000 unit Documented by: Heparin Sodium (Porcine) (Heparin 5,000 Unit/1 Ml Vial) 5,000 unit SUB-Q Q12HR [facility] Last Admin: 08/01/21 10:45 Dose: 5,000 unit Documented by: Hydralazine HCl (Hydralazine 20 Mg/1 Ml Inj) 5 mg IV Q4H PRN PRN Reason: Hypertension Last Admin: 08/01/21 12:23 Dose: 5 mg Documented by: Sodium Chloride (Nacl 0.9%) 100 mls @ 999 mls/hr IV [place] PRN PRN Reason: Hypotension Magnesium Hydroxide (Magnesium Hydroxide (Mom) Oral Liqd Udc) 30 ml PO Q4H PRN PRN Reason: Constipation Metoclopramide HCl (Metoclopramide 10 Mg/2 Ml Inj) 5 mg IV Q6H PRN PRN Reason: Nausea And Vomiting Morphine Sulfate (Morphine 2 Mg/1 Ml Inj) 2 mg IV Q4H PRN PRN Reason: Pain, Moderate (4-6) Morphine Sulfate (Morphine 4 Mg/1 Ml Inj) 4 mg IV Q4H PRN PRN Reason: Pain , Severe (7-10) Naloxone HCl (Naloxone 0.4 Mg/1 Ml Inj) 0.1 mg IV Q2MIN PRN PRN Reason: Res Rate </= 8 or 02 SAT < 92% Ondansetron HCl (Ondansetron 4 Mg/2 Ml Inj) 4 mg IV Q8H PRN PRN Reason: Nausea And Vomiting Oxycodone/Acetaminophen (Oxycodone /Acetaminophen 5-325mg Tab) 1 tab PO Q6H PRN PRN Reason: Pain, Moderate (4-6) Senna (Sennosides 8.6 Mg Tab) 8.6 mg PO Q12HR PRN PRN Reason: Constipation Sodium Chloride (Sodium Chloride 0.9% 10 Ml Flush Syringe) 10 ml IV BID [facility] Last Admin: 08/01/21 10:47 Dose: 10 ml Documented by: Zinc Sulfate (Zinc Sulfate 220 Mg Cap) 220 mg PO QDAY [facility] Last Admin: 08/01/21 10:47 Dose: 220 mg Documented by: Review of Systems All systems: negative (10 point ROS performed and negative except for that listed in HPI) Exam Vital Signs Temp Pulse Resp BP Pulse Ox 100.9 F H 80 18 201/112 100 07/31/21 17:06 07/31/21 17:06 07/31/21 17:06 07/31/21 17:06 07/31/21 17:06 Narrative exam: Gen.: Awake, alert, oriented x3. No apparent distress ENT: Trachea midline. No lymphadenopathy. No scleral icterus or conjunctival pallor CV: S1, S2 present Respiratory/chest: No audible wheezes. O2 sat 100% on room air. Positive tenderness to palpation over left lateral rib cage and back. Minimal ecchymosis of the chest wall. No open wounds. Abdomen: Soft, nondistended, nontender. No rebound, rigidity, guarding Extremities: No clubbing, cyanosis, edema Results - Labs 08/01/21 03:44 08/01/21 03:44 Abnormal lab results 07/31/21 07/31/21 07/31/21 Range/Units 18:16 18:16 19:11 WBC (4.5-11.0) K/mm3 RBC (3.65-5.03) M/mm3 Hgb 11.5 L (11.8-15.2) gm/dl Hct 35.2 L (35.5-45.6) % RDW (13.2-15.2) % Plt Count 138 L (140-440) K/mm3 Lymph % (Auto) 7.2 L (13.4-35.0) % Eos % (Auto) 13.8 H (0.0-4.3) % Lymph # (Auto) 0.5 L (1.2-5.4) K/mm3 Eos # (Auto) 0.9 H (0.0-0.4) K/mm3 Seg Neutrophils % 71.7 H (40.0-70.0) % Eosinophils % (Manual) (0.0-4.3) % Basophils % (Manual) (0.0-1.8) % Lymphocytes # (Manual) (1.2-5.4) K/mm3 Eosinophils # (Manual) (0.0-0.4) K/mm3 D-Dimer 837.95 H (0-234) ng/mlDDU Sodium 134 L (137-145) mmol/L Potassium 5.4 H (3.6-5.0) mmol/L Chloride 97.5 L (98-107) mmol/L Carbon Dioxide 19 L (22-30) mmol/L BUN 38 H (9-20) mg/dL Creatinine 8.5 H (0.8-1.3) mg/dL Glucose 101 H (75-100) mg/dL Calcium 8.2 L (8.4-10.2) mg/dL Ferritin (30.0-300.0) ng/mL ALT < 5 L (7-56) units/L Alkaline Phosphatase 243 H (35-129) units/L Lactate Dehydrogenase (91-180) units/L Troponin T (0.00-0.029) ng/mL C-Reactive Protein (0.00-1.30) mg/dL Albumin (3.9-5) g/dL 07/31/21 07/31/21 07/31/21 Range/Units 19:11 19:11 19:11 WBC (4.5-11.0) K/mm3 RBC (3.65-5.03) M/mm3 Hgb (11.8-15.2) gm/dl Hct (35.5-45.6) % RDW (13.2-15.2) % Plt Count (140-440) K/mm3 Lymph % (Auto) (13.4-35.0) % Eos % (Auto) (0.0-4.3) % Lymph # (Auto) (1.2-5.4) K/mm3 Eos # (Auto) (0.0-0.4) K/mm3 Seg Neutrophils % (40.0-70.0) % Eosinophils % (Manual) (0.0-4.3) % Basophils % (Manual) (0.0-1.8) % Lymphocytes # (Manual) (1.2-5.4) K/mm3 Eosinophils # (Manual) (0.0-0.4) K/mm3 D-Dimer (0-234) ng/mlDDU Sodium (137-145) mmol/L Potassium (3.6-5.0) mmol/L Chloride (98-107) mmol/L Carbon Dioxide (22-30) mmol/L BUN (9-20) mg/dL Creatinine (0.8-1.3) mg/dL Glucose 101 H (75-100) mg/dL Calcium (8.4-10.2) mg/dL Ferritin 2634.0 H (30.0-300.0) ng/mL ALT (7-56) units/L Alkaline Phosphatase (35-129) units/L Lactate Dehydrogenase 198 H (91-180) units/L Troponin T 0.078 H (0.00-0.029) ng/mL C-Reactive Protein 5.90 H (0.00-1.30) mg/dL Albumin (3.9-5) g/dL 08/01/21 08/01/21 08/01/21 Range/Units 03:44 03:44 14:29 WBC 4.4 L (4.5-11.0) K/mm3 RBC 3.52 L (3.65-5.03) M/mm3 Hgb 10.5 L (11.8-15.2) gm/dl Hct 32.7 L (35.5-45.6) % RDW 13.0 L (13.2-15.2) % Plt Count 125 L (140-440) K/mm3 Lymph % (Auto) (13.4-35.0) % Eos % (Auto) (0.0-4.3) % Lymph # (Auto) (1.2-5.4) K/mm3 Eos # (Auto) (0.0-0.4) K/mm3 Seg Neutrophils % (40.0-70.0) % Eosinophils % (Manual) 16.0 H (0.0-4.3) % Basophils % (Manual) 2.0 H (0.0-1.8) % Lymphocytes # (Manual) 0.8 L (1.2-5.4) K/mm3 Eosinophils # (Manual) 0.7 H (0.0-0.4) K/mm3 D-Dimer (0-234) ng/mlDDU Sodium 136 L (137-145) mmol/L Potassium 5.3 H (3.6-5.0) mmol/L Chloride (98-107) mmol/L Carbon Dioxide 21 L (22-30) mmol/L BUN 42 H (9-20) mg/dL Creatinine 9.4 H (0.8-1.3) mg/dL Glucose (75-100) mg/dL Calcium (8.4-10.2) mg/dL Ferritin (30.0-300.0) ng/mL ALT < 5 L (7-56) units/L Alkaline Phosphatase 211 H (35-129) units/L Lactate Dehydrogenase (91-180) units/L Troponin T 0.061 H D (0.00-0.029) ng/mL C-Reactive Protein (0.00-1.30) mg/dL Albumin 3.6 L (3.9-5) g/dL Diabetes panel 07/31/21 07/31/21 07/31/21 Range/Units 18:16 19:11 19:11 Sodium 134 L (137-145) mmol/L Potassium 5.4 H (3.6-5.0) mmol/L Chloride 97.5 L (98-107) mmol/L Carbon Dioxide 19 L (22-30) mmol/L BUN 38 H (9-20) mg/dL Creatinine 8.5 H (0.8-1.3) mg/dL Glucose 101 H 101 H (75-100) mg/dL Calcium 8.2 L (8.4-10.2) mg/dL AST 8 (5-40) units/L ALT < 5 L (7-56) units/L Alkaline Phosphatase 243 H (35-129) units/L Total Protein 7.3 (6.3-8.2) g/dL Albumin 4.0 (3.9-5) g/dL Triglycerides 121 (2-149) mg/dL HDL Cholesterol 56 (40-59) mg/dL 08/01/21 Range/Units 03:44 Sodium 136 L (137-145) mmol/L Potassium 5.3 H (3.6-5.0) mmol/L Chloride 98.7 (98-107) mmol/L Carbon Dioxide 21 L (22-30) mmol/L BUN 42 H (9-20) mg/dL Creatinine 9.4 H (0.8-1.3) mg/dL Glucose 83 (75-100) mg/dL Calcium 8.5 (8.4-10.2) mg/dL AST 6 (5-40) units/L ALT < 5 L (7-56) units/L Alkaline Phosphatase 211 H (35-129) units/L Total Protein 6.6 (6.3-8.2) g/dL Albumin 3.6 L (3.9-5) g/dL Triglycerides (2-149) mg/dL HDL Cholesterol (40-59) mg/dL Calcium panel 07/31/21 08/01/21 Range/Units 18:16 03:44 Calcium 8.2 L 8.5 (8.4-10.2) mg/dL Albumin 4.0 3.6 L (3.9-5) g/dL Pituitary panel 07/31/21 07/31/21 08/01/21 Range/Units 18:16 19:11 03:44 Sodium 134 L 136 L (137-145) mmol/L Potassium 5.4 H 5.3 H (3.6-5.0) mmol/L Chloride 97.5 L 98.7 (98-107) mmol/L Carbon Dioxide 19 L 21 L (22-30) mmol/L BUN 38 H 42 H (9-20) mg/dL Creatinine 8.5 H 9.4 H (0.8-1.3) mg/dL Glucose 101 H 101 H 83 (75-100) mg/dL Calcium 8.2 L 8.5 (8.4-10.2) mg/dL Adrenal panel 07/31/21 07/31/21 08/01/21 Range/Units 18:16 19:11 03:44 Sodium 134 L 136 L (137-145) mmol/L Potassium 5.4 H 5.3 H (3.6-5.0) mmol/L Chloride 97.5 L 98.7 (98-107) mmol/L Carbon Dioxide 19 L 21 L (22-30) mmol/L BUN 38 H 42 H (9-20) mg/dL Creatinine 8.5 H 9.4 H (0.8-1.3) mg/dL Glucose 101 H 101 H 83 (75-100) mg/dL Calcium 8.2 L 8.5 (8.4-10.2) mg/dL Total Bilirubin 0.30 0.20 (0.1-1.2) mg/dL AST 8 6 (5-40) units/L ALT < 5 L < 5 L (7-56) units/L Alkaline Phosphatase 243 H 211 H (35-129) units/L Total Protein 7.3 6.6 (6.3-8.2) g/dL Albumin 4.0 3.6 L (3.9-5) g/dL - Imaging Chest x-ray: report reviewed, image reviewed CT scan - chest: report reviewed, image reviewed Assessment and Plan 41 yo M with L rib fx 8, 10 Plan: 1. Pain control - add ketorolac 2. Ice to chest wall 3. Incentive spirometry 4. No surgical intervention - will s/o Thank you for this consultation. Please call with any questions or concerns. Evaluation and treatment of this patient was during the time of the national and state emergency arising from COVID19 coronavirus pandemic. Treatment and procedu res performed meet the current and available best practice and guidelines for patient during the COVID pandemic.
[2021-08-01 15:22] LABS: Hepatitis C Virus Antibody Non-Reactive (NonReactive)
[2021-08-01 15:28] LABS: Hepatitis B Surface Antigen Nonreactive (Negative)
--- NOTE | 2021-08-01 16:15 | Consultation ---
History of Present Illness Consult date: 08/01/21 Requesting physician: GUNNER SANTILLAN Consult reason: chest pain, other (CAD) History of present illness: Patient is a 41-year-old male with a past medical history of end-stage renal disease and hypertension who presented to the ED with a complaint of fever, body aches, chills, shortness of breath, malaise and fatigue, left-sided thorax pain, left-sided chest wall pain and cough x1 week. Patient reports chest pain started about a week ago when he was lifting something heavy and turned and had a coughing fit at that time reports he felt a crack in his rib and this is when his symptoms began. He locates pain on left side of his rib cage. States pain is worsened with palpation and coughing. He denies any relieving factors. Patient denies any palpitations, shortness of breath, nausea or vomiting. Of note CT of chest revealed nondisplaced rib fractures of left eighth and 10th rib and coronary artery disease. Patient is previously unknown to our practice. Cardiology is consulted for chest pain and coronary artery disease. Past History Past Medical History: ESRD, hypertension Past Surgical History: No surgical history Social history: lives with family, smoking, full code. denies: alcohol abuse, prescription drug abuse, IV drug use Family history: no significant family history Medications and Allergies Allergies Allergy/AdvReac Type Severity Reaction Status Date / Time No Known Allergies Allergy Verified 08/01/21 12:08 Home Medications Medication Instructions Recorded Confirmed Last Taken Type Cinacalcet HCl [Sensipar] 90 mg PO QHS 08/01/21 08/01/21 Unknown History Ferric Citrate (Nf) [Auryxia] 630 mg PO TIDAC 08/01/21 08/01/21 Unknown History Hydralazine HCl 50 mg PO BID 08/01/21 08/01/21 Unknown History NIFEdipine XL [Procardia Xl] 60 mg PO Q12HR 08/01/21 08/01/21 Unknown History Vit B Comp C/Folic Acid/Vit D3 1 tab PO QDAY 08/01/21 08/01/21 Unknown History [Dialyvite 800 Plus D Wafer] cloNIDine HCL [Clonidine HCl] 0.3 mg PO BID 08/01/21 08/01/21 Unknown History Active Meds: Active Medications Acetaminophen (Acetaminophen 325 Mg Tab) 650 mg PO Q4H PRN PRN Reason: Pain MILD(1-3)/Fever >100.5/CASTRO Al Hydrox/Mg Hydrox/Simethicone (Alum-Mag Hydroxide-Simethicone [id number]/5ml Oral Liqd 30 Ml) 30 ml PO Q4H PRN PRN Reason: Indigestion Amlodipine Besylate (Amlodipine 10 Mg Tab) 10 mg PO QDAY [facility] Last Admin: 08/01/21 10:45 Dose: 10 mg Documented by: Ascorbic Acid (Ascorbic Acid 500 Mg Tab) 500 mg PO QDAY [facility] Last Admin: 08/01/21 10:47 Dose: 500 mg Documented by: Aspirin (Aspirin Ec 81 Mg Tab) 81 mg PO QDAY [facility] Last Admin: 08/01/21 10:45 Dose: 81 mg Documented by: Atorvastatin Calcium (Atorvastatin 20 Mg Tab) 20 mg PO QHS [facility] Cholecalciferol (Cholecalciferol (Vit D3) 1000 Unit (25 Mcg) Tab) 1,000 unit PO QDAY [facility] Last Admin: 08/01/21 10:47 Dose: 1,000 unit Documented by: Heparin Sodium (Porcine) (Heparin 5,000 Unit/1 Ml Vial) 5,000 unit SUB-Q Q12HR [facility] Last Admin: 08/01/21 10:45 Dose: 5,000 unit Documented by: Hydralazine HCl (Hydralazine 20 Mg/1 Ml Inj) 5 mg IV Q4H PRN PRN Reason: Hypertension Last Admin: 08/01/21 12:23 Dose: 5 mg Documented by: Sodium Chloride (Nacl 0.9%) 100 mls @ 999 mls/hr IV LYNSEY PRN PRN Reason: Hypotension Magnesium Hydroxide (Magnesium Hydroxide (Mom) Oral Liqd Udc) 30 ml PO Q4H PRN PRN Reason: Constipation Metoclopramide HCl (Metoclopramide 10 Mg/2 Ml Inj) 5 mg IV Q6H PRN PRN Reason: Nausea And Vomiting Morphine Sulfate (Morphine 2 Mg/1 Ml Inj) 2 mg IV Q4H PRN PRN Reason: Pain, Moderate (4-6) Morphine Sulfate (Morphine 4 Mg/1 Ml Inj) 4 mg IV Q4H PRN PRN Reason: Pain , Severe (7-10) Naloxone HCl (Naloxone 0.4 Mg/1 Ml Inj) 0.1 mg IV Q2MIN PRN PRN Reason: Res Rate </= 8 or 02 SAT < 92% Ondansetron HCl (Ondansetron 4 Mg/2 Ml Inj) 4 mg IV Q8H PRN PRN Reason: Nausea And Vomiting Oxycodone/Acetaminophen (Oxycodone /Acetaminophen 5-325mg Tab) 1 tab PO Q6H PRN PRN Reason: Pain, Moderate (4-6) Senna (Sennosides 8.6 Mg Tab) 8.6 mg PO Q12HR PRN PRN Reason: Constipation Sodium Chloride (Sodium Chloride 0.9% 10 Ml Flush Syringe) 10 ml IV BID [facility] Last Admin: 08/01/21 10:47 Dose: 10 ml Documented by: Zinc Sulfate (Zinc Sulfate 220 Mg Cap) 220 mg PO QDAY [facility] Last Admin: 08/01/21 10:47 Dose: 220 mg Documented by: Review of Systems Constitutional: chills, fatigue, weakness, no weight loss, no weight gain Cardiovascular: shortness of breath, no orthopnea, no palpitations Respiratory: cough, shortness of breath, pleurisy, pain on inspiration Gastrointestinal: no nausea, no vomiting Musculoskeletal: no neck pain, no shooting arm pain Integumentary: no rash, no pruritis, no redness Neurological: no weakness, no parathesias Psychiatric: no anxiety, no memory loss Endocrine: no cold intolerance, no heat intolerance Physical Examination Vital Signs Temp Pulse Resp BP Pulse Ox 100.9 F H 80 18 201/112 100 07/31/21 17:06 07/31/21 17:06 07/31/21 17:06 07/31/21 17:06 07/31/21 17:06 General appearance: no acute distress HEENT: Positive: PERRL Neck: Positive: trachea midline Cardiac: Positive: Reg Rate and Rhythm Lungs: Positive: Normal Breath Sounds Neuro: Positive: Grossly Intact Abdomen: Positive: Soft Skin: Negative: Rash, Suspicious Lesions Extremities: Present: upper extr. pulses. Absent: edema Results 08/01/21 03:44 08/01/21 03:44 Cardiac Enzymes 07/31/21 07/31/21 07/31/21 Range/Units 18:16 19:11 23:25 AST 8 (5-40) units/L Lactate Dehydrogenase 198 H 141 (91-180) units/L 08/01/21 Range/Units 03:44 AST 6 (5-40) units/L Lactate Dehydrogenase (91-180) units/L Lipids 07/31/21 Range/Units 19:11 Triglycerides 121 (2-149) mg/dL Cholesterol 158 (50-199) mg/dL HDL Cholesterol 56 (40-59) mg/dL Cholesterol/HDL Ratio 2.82 % CBC 07/31/21 08/01/21 Range/Units 18:16 03:44 WBC 6.9 4.4 L (4.5-11.0) K/mm3 RBC 3.81 3.52 L (3.65-5.03) M/mm3 Hgb 11.5 L 10.5 L (11.8-15.2) gm/dl Hct 35.2 L 32.7 L (35.5-45.6) % Plt Count 138 L 125 L (140-440) K/mm3 Lymph # (Auto) 0.5 L (1.2-5.4) K/mm3 [place] # (Auto) 0.5 (0.0-0.8) K/mm3 Eos # (Auto) 0.9 H (0.0-0.4) K/mm3 Baso # (Auto) 0.0 (0.0-0.1) K/mm3 Comprehensive Metabolic Panel 07/31/21 07/31/21 08/01/21 Range/Units 18:16 19:11 03:44 Sodium 134 L 136 L (137-145) mmol/L Potassium 5.4 H 5.3 H (3.6-5.0) mmol/L Chloride 97.5 L 98.7 (98-107) mmol/L Carbon Dioxide 19 L 21 L (22-30) mmol/L BUN 38 H 42 H (9-20) mg/dL Creatinine 8.5 H 9.4 H (0.8-1.3) mg/dL Glucose 101 H 101 H 83 (75-100) mg/dL Calcium 8.2 L 8.5 (8.4-10.2) mg/dL AST 8 6 (5-40) units/L ALT < 5 L < 5 L (7-56) units/L Alkaline Phosphatase 243 H 211 H (35-129) units/L Total Protein 7.3 6.6 (6.3-8.2) g/dL Albumin 4.0 3.6 L (3.9-5) g/dL - Imaging and Cardiology Echo: pending EKG interpretations - Telemetry EKG Rhythm: Sinus Bradycardia - EKG Sinus rhythms and dysrhythmias: sinus rhythm Chamber hypertrophy or enlargement: left ventricular hypertro Assessment and Plan Patient is a 41-year-old male with a past medical history of end-stage renal disease and hypertension who presented to the ED with a complaint of fever, body aches, chills, shortness of breath, malaise and fatigue, left-sided thorax pain, left-sided chest wall pain and cough x1 week ESRD Atypical chest pain Hypertensive urgency Rib fractures Minimally elevated troponins-in setting of ESRD and hypertensive urgency Hyperkalemia Elevated D-dimer Plan: EKG shows sinus rhythm 77 with LVH and tall t-waves. Troponins minimally elevated and downtrending 0.078->0.061 Chest pain likely associated with rib fractures Echo pending Resume outpatient medications: Clonidine, hydralazine, nifedipine Patient seen in conjunction with Dr. Puentes who agrees with this plan of care. We will continue to follow - Patient Problems (1) Ribs, multiple fractures Current Visit: Yes Status: Acute (2) Hypertensive urgency Current Visit: Yes Status: Acute (3) CAD (coronary artery disease) Current Visit: Yes Status: Acute (4) ESRD (end stage renal disease) on dialysis Current Visit: Yes Status: Acute (5) Elevated d-dimer Current Visit: Yes Status: Acute (6) Hyperkalemia Current Visit: Yes Status: Acute
[2021-08-01] MEDS: cloNIDine 0.2 MG TAB PO SCH (18:52)
[2021-08-01] MEDS: ACETAMINOPHEN 325 MG TAB PO PRN ×2 (19:02→23:00)
[2021-08-01] MEDS: hydrALAZINE 25 MG TAB PO SCH (21:37)
[2021-08-02 06:35] LABS: Calcium 8.4 mg/dL (8.4-10.2)
--- NOTE | 2021-08-02 09:09 | Progress Note ---
Assessment and Plan Impression: End stage renal disease ([facility]) Fever COVID 19 negative Rib fracture likely related to poorly controlled secondary hyperparathyroidism Hypertension Hx of bradycardia Anemia secondary to ESRD Secondary hyperparathyroidism Plan: Hemodialysis today. Continue TTS schedule UF as tolerated Blood cx NGTD - abx per primary team Continue antiHTN medications Monitor HR on Clonidine Pain management per primary team Epogen TIW prn Renal/HD diet Binders with meals Avoid aluminum based medication in dialysis population Advised patient of importance to adhere to phos restricted diet and binders Subjective Date of service: 08/02/21 Interval history: Patient has no complaint. Objective - Vital Signs Vital signs: Vital Signs - 12hr 08/01/21 08/02/21 08/02/21 23:14 00:49 03:23 Temperature 98.7 F 97.9 F Pulse Rate 75 58 L Respiratory 18 12 Rate Blood Pressure 154/104 152/97 O2 Sat by Pulse 98 97 100 Oximetry 08/02/21 08:40 Temperature 97.5 F L Pulse Rate 68 Respiratory 18 Rate Blood Pressure 164/109 O2 Sat by Pulse 100 Oximetry - General Appearance General appearance: well-developed, well-nourished Respiratory: Present: Clear to Ascultation Cardiology: regular, S1S2 Gastrointestinal: normal, no tenderness, no distended Psychiatric: cooperative - Lab 08/01/21 03:44 08/02/21 04:27 Most recent lab results Calcium 8.4 mg/dL (8.4-10.2) 08/02/21 04:27 Magnesium 2.30 mg/dL (1.7-2.3) 07/31/21 19:11 Medications & Allergies - Medications Allergies/Adverse Reactions: Allergies No Known Allergies Allergy (Verified 08/01/21 12:08) Home Medications: Home Medications Medication Instructions Recorded Confirmed Last Taken Type Cinacalcet HCl [Sensipar] 90 mg PO QHS 08/01/21 08/01/21 Unknown History Ferric Citrate (Nf) [Auryxia] 630 mg PO TIDAC 08/01/21 08/01/21 Unknown History Hydralazine HCl 50 mg PO BID 08/01/21 08/01/21 Unknown History NIFEdipine XL [Procardia Xl] 60 mg PO Q12HR 08/01/21 08/01/21 Unknown History Vit B Comp C/Folic Acid/Vit D3 1 tab PO QDAY 08/01/21 08/01/21 Unknown History [Dialyvite 800 Plus D Wafer] cloNIDine HCL [Clonidine HCl] 0.3 mg PO BID 08/01/21 08/01/21 Unknown History Active Medications: Generic Name Dose Route Start Last Admin Trade Name Freq PRN Reason Stop Dose Admin Acetaminophen 650 mg 07/31/21 21:53 08/01/21 23:00 Acetaminophen 325 Mg Tab PO 650 mg Q4H PRN Administration Pain MILD(1-3)/Fever >100.5/CASTRO Al Hydrox/Mg Hydrox/Simethicone 30 ml 07/31/21 21:53 Alum-Mag Hydroxide-Simethicone [id number]/5ml Oral Liqd 30 Ml PO Q4H PRN Indigestion Ascorbic Acid 500 mg 08/01/21 10:00 08/01/21 10:47 Ascorbic Acid 500 Mg Tab PO 500 mg QDAY ALBA Administration Aspirin 81 mg 08/01/21 10:00 08/01/21 10:45 Aspirin Ec 81 Mg Tab PO 81 mg QDAY ALBA Administration Atorvastatin Calcium 20 mg 08/01/21 22:00 08/01/21 21:38 Atorvastatin 20 Mg Tab PO 20 mg QHS ALBA Administration Cholecalciferol 1,000 unit 08/01/21 10:00 08/01/21 10:47 Cholecalciferol (Vit D3) 1000 Unit (25 Mcg) Tab PO 1,000 unit QDAY ALBA Administration Clonidine HCl 0.3 mg 08/01/21 18:00 08/01/21 18:52 Clonidine 0.2 Mg Tab PO 0.3 mg Q12HR ALBA Administration Heparin Sodium (Porcine) 5,000 unit 07/31/21 22:00 08/01/21 21:38 Heparin 5,000 Unit/1 Ml Vial SUB-Q 5,000 unit Q12HR ALBA Administration Hydralazine HCl 5 mg 07/31/21 21:57 08/01/21 19:02 Hydralazine 20 Mg/1 Ml Inj IV 5 mg Q4H PRN Administration Hypertension Hydralazine HCl 50 mg 08/01/21 22:00 08/01/21 21:37 Hydralazine 25 Mg Tab PO 50 mg BID ALBA Administration Sodium Chloride 100 mls @ 999 mls/hr 08/01/21 10:00 Nacl 0.9% IV LYNSEY PRN Hypotension Magnesium Hydroxide 30 ml 07/31/21 21:53 Magnesium Hydroxide (Mom) Oral Liqd Udc PO Q4H PRN Constipation Metoclopramide HCl 5 mg 07/31/21 21:53 Metoclopramide 10 Mg/2 Ml Inj IV Q6H PRN Nausea And Vomiting Morphine Sulfate 2 mg 07/31/21 21:53 Morphine 2 Mg/1 Ml Inj IV Q4H PRN Pain, Moderate (4-6) Morphine Sulfate 4 mg 07/31/21 21:53 Morphine 4 Mg/1 Ml Inj IV Q4H PRN Pain , Severe (7-10) Naloxone HCl 0.1 mg 07/31/21 21:53 Naloxone 0.4 Mg/1 Ml Inj IV Q2MIN PRN Res Rate </= 8 or 02 SAT < 92% Nifedipine 60 mg 08/02/21 10:00 Nifedipine Xl 60 Mg Tab PO Q12HR ALBA Ondansetron HCl 4 mg 07/31/21 21:53 Ondansetron 4 Mg/2 Ml Inj IV Q8H PRN Nausea And Vomiting Oxycodone/Acetaminophen 1 tab 07/31/21 21:53 08/02/21 03:05 Oxycodone /Acetaminophen 5-325mg Tab PO 1 tab Q6H PRN Administration Pain, Moderate (4-6) Senna 8.6 mg 07/31/21 21:53 Sennosides 8.6 Mg Tab PO Q12HR PRN Constipation Sodium Chloride 10 ml 07/31/21 22:00 08/02/21 03:06 Sodium Chloride 0.9% 10 Ml Flush Syringe IV 10 ml BID ALBA Administration Zinc Sulfate 220 mg 08/01/21 10:00 08/01/21 10:47 Zinc Sulfate 220 Mg Cap PO 220 mg QDAY ALBA Administration
[2021-08-02] MEDS: cloNIDine 0.2 MG TAB PO SCH ×2 (10:44→17:26)
[2021-08-02] MEDS: HEPARIN 5,000 UNIT/1 ML VIAL SUB-Q SCH (10:44)
[2021-08-02] MEDS: ASPIRIN EC 81 MG TAB PO SCH (10:44)
[2021-08-02] MEDS: hydrALAZINE 25 MG TAB PO SCH ×2 (10:44→17:28)
[2021-08-02] MEDS: ASCORBIC ACID 500 MG TAB PO SCH (10:44)
[2021-08-02] MEDS: CHOLECALCIFEROL (VIT D3) 1000 UNIT (25 mcg) TAB PO SCH (10:44)
[2021-08-02] MEDS: NIFEdipine XL 60 MG TAB PO SCH ×2 (10:45→17:26)
[2021-08-02] MEDS: ZINC SULFATE 220 MG CAP PO SCH (10:50)
--- NOTE | 2021-08-02 10:54 | Discharge Summary ---
Providers - Providers Date of Admission: 07/31/21 21:53 Date of discharge: 08/02/21 Attending physician: YAZMIN MARCIAL 07/31/21 19:03 Consult to Physician [CONS] Urgent Comment: Consulting Provider: SCHUYLER WARNER Physician Instructions: Reason For Exam: esrd sepsis 08/01/21 05:40 Consult to Physician [CONS] Routine Comment: Consulting Provider: RHONDA SULLIVAN Physician Instructions: Reason For Exam: rib fx on CT 08/01/21 10:32 Consult to Physician [CONS] Routine Comment: Consulting Provider: BOO DALAL Physician Instructions: Reason For Exam: CAD, CP Primary care physician: VENEER DRIER Hospitalization Reason for admission: Fever and chest pain Condition: Good Pertinent studies: VQ scan; low probability for PE Chest CT Chest x-ray Procedures: Hemodialysis per schedule Hospital course: 41-year-old male patient with significant past medical history of hypertension, end-stage renal disease on hemodialysis was admitted through emergency room with fever and chest pain as well as left-sided chest wall pain patient was evalu ated by class b driver, received hemodialysis per schedule patient did not have COVID-19 vaccine Joshi PCR test was negative CT chest findings consistent with rib fractures probably old evaluated by surgeon no intervention needed except for spirometry and pain medications today patient is comfortable, no new complaints, hemodynamically and clinically stable, cleared by neurology and cardiology for discharge and follow-up outpatient for further evaluation management. Patient stable at discharge Final diagnosis --Left lateral 8, 9, 10 rib fractures; Supportive care, pain medications, incentive spirometry Advised to follow primary care physician for further evaluation management --Suspected COVID-19 infection; Joshi PCR test is negative --History of CAD; Continue current cardiac medications Follow-up cardiology per schedule --ESRD on hemodialysis; Nephrology following, hemodialysis per schedule Outpatient HD placement --Hyperkalemia; Due to ESRD, hemodialysis --Elevated D-dimer; VQ scan low probability for PE Patient is hemodynamically and clinically stable for discharge Disposition: 01 HOME / SELF CARE / HOMELESS Final Discharge Diagnosis (Prints w/discharge instructions): Left lateral 8, 9, 10 rib fractures. COVID-19 negative test. CAD. ESRD on hemodialysis. Hyperkalemia. Elevated D-dimer. Time spent for discharge: 40 min Core Measure Documentation - Palliative Care Palliative Care/ Comfort Measures: Not Applicable - Core Measures Any of the following diagnoses?: none Exam - Constitutional Vitals: Temp Pulse Resp BP Pulse Ox 97.5 F L 68 18 164/109 100 08/02/21 08:40 08/02/21 08:40 08/02/21 08:40 08/02/21 08:40 08/02/21 08:40 General appearance: Present: no acute distress, well-nourished - EENT Eyes: Present: PERRL, EOM intact - Neck Neck: Present: supple, normal ROM - Respiratory Respiratory effort: normal Respiratory: bilateral: diminished, rales, negative: rhonchi, wheezing - Cardiovascular Rhythm: regular Heart Sounds: Present: S1 & S2 - Extremities Extremities: no ischemia, No edema - Abdominal General gastrointestinal: Present: soft, non-tender, non-distended, normal bowel sounds - Integumentary Integumentary: Present: clear, warm - Musculoskeletal Musculoskeletal: strength equal bilaterally, generalized weakness - Psychiatric Psychiatric: appropriate mood/affect, agitated - Neurologic Neurologic: CNII-XII intact, moves all extremities Plan Activity: advance as tolerated Diet: renal Additional Instructions: Advised to comply with medications, diet, dialysis and follow-up visits. If you have worsening symptoms contact MD or go to emergency room as needed. Advised incentive spirometry Follow up with: PRIMARY CARE,MD [Primary Care Provider] - 7 Days OLIVIA ARREDONDO MD [Staff Physician] - 7 Days EDUARDO FORTE MD [Staff Physician] - 7 Days Prescriptions: Aspirin EC [Halfprin EC] 81 mg PO QDAY #30 tablet oxyCODONE /ACETAMINOPHEN [Percocet 5/325 mg] 1 tab PO TID PRN #10 tablet PRN Reason: Pain, Moderate (4-6) Ketorolac [Toradol] 10 mg PO Q8H PRN #20 tablet PRN Reason: Pain
--- NOTE | 2021-08-02 11:26 | Progress Note ---
Assessment and Plan Patient is a 41-year-old male with a past medical history of end-stage renal disease and hypertension who presented to the ED with a complaint of fever, body aches, chills, shortness of breath, malaise and fatigue, left-sided thorax pain, left-sided chest wall pain and cough x1 week ESRD Atypical chest pain Hypertensive urgency Rib fractures Minimally elevated troponins-in setting of ESRD and hypertensive urgency Hyperkalemia Elevated D-dimer Echo 08/01/2021-EF 55 to 60%, moderate diastolic dysfunction (pseudonormal filling). Right ventricle is normal in size. Mild tricuspid regurgitation RSVP 43 mmHg. Moderate mitral annular calcification. Left atrium severely dilated. Plan: EKG shows sinus rhythm 77 with LVH and tall t-waves. Troponins minimally elevated and downtrending 0.078->0.061 Chest pain likely associated with rib fractures Continue outpatient medications: Clonidine, hydralazine, nifedipine Patient reports nephrologists handles his BP medications. Will defer to nephrology for BP management Cardiac status stable. Will sign off Patient seen in conjunction with Dr. Puentes who agrees with this plan of care. - Patient Problems (1) Ribs, multiple fractures Current Visit: Yes Status: Acute (2) Hypertensive urgency Current Visit: Yes Status: Acute (3) CAD (coronary artery disease) Current Visit: Yes Status: Acute (4) ESRD (end stage renal disease) on dialysis Current Visit: Yes Status: Acute (5) Elevated d-dimer Current Visit: Yes Status: Acute (6) Hyperkalemia Current Visit: Yes Status: Acute Subjective Date of service: 08/02/21 Principal diagnosis: weakness/malaise/rib fractures/accelrated HTN Interval history: Patient resting in bed in no acute distress. Reports feeling better Sinus 64 on monitor Objective Vital Signs Temp Pulse Resp BP Pulse Ox 08/02/21 08:40 97.5 F L 68 18 164/109 100 08/02/21 03:23 97.9 F 58 L 12 152/97 100 08/02/21 00:49 97 08/01/21 23:14 98.7 F 75 18 154/104 98 08/01/21 19:24 100.1 F H 89 15 173/106 96 08/01/21 19:02 84 208/122 08/01/21 19:00 97 08/01/21 18:52 84 208/122 08/01/21 18:50 102 F H 83 18 208/122 96 08/01/21 17:15 75 20 212/127 99 08/01/21 17:01 81 15 212/127 100 08/01/21 16:45 76 20 186/113 100 08/01/21 16:31 77 22 186/113 99 08/01/21 16:15 75 20 186/110 100 08/01/21 16:01 77 17 178/109 99 08/01/21 15:45 77 16 186/110 98 08/01/21 15:31 90 18 186/110 99 08/01/21 15:15 76 19 186/110 100 08/01/21 15:01 94 H 23 186/110 99 08/01/21 14:45 79 19 181/112 99 08/01/21 14:31 82 20 181/112 98 08/01/21 14:15 92 H 22 179/112 99 08/01/21 14:01 83 18 179/112 100 08/01/21 13:45 84 18 179/112 100 08/01/21 13:31 85 16 179/112 100 08/01/21 13:15 83 17 174/120 99 08/01/21 13:01 80 22 174/120 99 08/01/21 12:45 78 17 164/91 100 08/01/21 12:31 76 19 164/91 100 08/01/21 12:23 78 227/131 08/01/21 12:15 84 11 L 219/132 99 08/01/21 12:01 74 16 219/132 99 08/01/21 11:45 89 15 197/121 100 08/01/21 11:31 67 17 197/121 99 - Physical Examination General: No Apparent Distress HEENT: Positive: PERRL Neck: Positive: trachea midline Cardiac: Positive: Reg Rate and Rhythm Lungs: Positive: Normal Breath Sounds Neuro: Positive: Grossly Intact Abdomen: Positive: Soft Skin: Negative: Rash, Suspicious Lesions Extremities: Present: upper extr. pulses. Absent: edema - Labs and Meds Comprehensive Metabolic Panel 08/02/21 Range/Units 04:27 Sodium 134 L (137-145) mmol/L Potassium 5.5 H (3.6-5.0) mmol/L Chloride 97.7 L (98-107) mmol/L Carbon Dioxide 17 L (22-30) mmol/L BUN 67 H (9-20) mg/dL Creatinine 11.6 H (0.8-1.3) mg/dL Glucose 92 (75-100) mg/dL Calcium 8.4 (8.4-10.2) mg/dL - Imaging and Cardiology EKG: report reviewed, image reviewed Echo: report reviewed - Telemetry EKG Rhythm: Sinus Rhythm - EKG Sinus rhythms and dysrhythmias: sinus rhythm Chamber hypertrophy or enlargement: left ventricular hypertro
[2021-08-02] MEDS: hydrALAZINE 20 MG/1 ML INJ IV PRN (17:24)
[2021-08-02 19:10] VITALS: BP 161/99
== END 2021-08-02 19:25 | disposition home or self-care (01) ==
LOC: ED 17:02 → 4A 21:53
PROVIDERS: ADMIT Internal Medicine Geriatric Medicine; ATTEND Internal Medicine
DX: S22.42XA Multiple fractures of ribs, left side, initial encounter for closed fracture (principal); Z20.822 Contact with and (suspected) exposure to COVID-19; R07.89 Other chest pain; I12.0 Hypertensive chronic kidney disease with stage 5 chronic kidney disease or end stage renal disease; N18.6 End stage renal disease; D63.1 Anemia in chronic kidney disease; E87.5 Hyperkalemia; I25.10 Atherosclerotic heart disease of native coronary artery without angina pectoris; R77.8 Other specified abnormalities of plasma proteins; R50.9 Fever, unspecified; B34.9 Viral infection, unspecified; Z99.2 Dependence on renal dialysis; Z79.899 Other long term (current) drug therapy; Z98.890 Other specified postprocedural states; X58.XXXA Exposure to other specified factors, initial encounter; Y92.89 Other specified places as the place of occurrence of the external cause; Y93.89 Activity, other specified; Y99.8 Other external cause status
CPT/HCPCS: 36415; 71046; 71250; 78580; 80048; 80053; 80061; 82140; 82550; 82728; 82947; 83615; 83735; 84145; 84484; 85025; 85379; 86140; 87040; 93005; 93306; 96365; 96372; 96375; 96376; 99285; A9540; G0257; G0378; J0360; J0696; J1644; U0003; 80074; 85007